=== PATIENT | female | born 1980 | race African-American/Black ===

== ENCOUNTER 2020-02-25 17:52 | Emergency (ER) | payer OTHER, SELFPAY ==
--- NOTE | 2020-02-25 17:57 | PC.NURSE ---
Patient was brought to triage by EMS along with her child. Patient notified that she needs to have someone come chart picker the child due to COVID regulations and policy. She reports her father is coming. Per ED charge it is ok to check in the patient and proceed with care while waiting for ride to come.
[2020-02-25 18:22] VITALS: BP 115/68; PULSE 76; RESP 18; TEMP 36.6; O2SAT 98
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
[2020-02-25] MEDS: IBUPROFEN 400 MG TABLET 800 MG PO (23:24)
[2020-02-25] MEDS: CYCLOBENZAPRINE HCL 10 MG TABLET PO (23:25)
[2020-02-25 23:33] VITALS: PULSE 73; RESP 18; O2SAT 99
== END 2020-02-25 23:36 | disposition home or self-care (01) ==
LOC: ANHED 23:31
PROVIDERS: Emergency Provider General Practice
DX: S39.012A Strain of muscle, fascia and tendon of lower back, initial encounter (principal); S16.1XXA Strain of muscle, fascia and tendon at neck level, initial encounter; E11.9 Type 2 diabetes mellitus without complications; V43.52XA Car driver injured in collision with other type car in traffic accident, initial encounter
CPT/HCPCS: 99283; A9270